=== PATIENT | male | born 1945 | race African-American/Black ===

== ENCOUNTER 2018-01-12 10:30 | Observation (INO) ==
--- NOTE | 2018-01-12 10:59 | ED ---
HPI General Chief Complaint: Extremity Injury, Lower Stated Complaint: Leg Pain Time Seen by Provider: 01/12/18 10:41 Source: patient Mode of arrival: ambulatory Limitations: no limitations History of Present Illness HPI Narrative: Patient is a 72-year-old male who presents to the ER for evaluation of possible DVT. Patient reports that he has been traveling over the past week and has noticed pain to his left lower extremity yesterday. Reports concerns for a DVT as he did have a DVT 11 years ago. He is unsure why he had a DVT at that time - he currently is not on any anticoagulation. Denies chest pain/sob. No other complaints. Related Data Home Medications Medication Instructions Recorded Confirmed telmisartan [Micardis] 80 mg PO DAILY 01/12/18 01/12/18 Allergies Allergy/AdvReac Type Severity Reaction Status Date / Time No Known Allergies Allergy Unverified 01/12/18 10:46 Review of Systems Except as stated in HPI: all other systems reviewed are negative [facility] Medical History Medical History External hemorrhoid (Acute) History of blood clots (Acute) Hypertension (Acute) Prostate CA (Acute) Radiation exposure (Acute) DVT (deep venous thrombosis) (Acute) Social History Social History Substance History: No History of Abuse Second Hand Smoke Exposure: No Smoking Status: Never smoker How Often Do You Have a Drink Containing Alcohol: 2 to 4 times a month Recent Travel in [facility] within the Last 8 Weeks: Yes Recent Out of Country Travel within the Last 8 Weeks: No Immunization History Tetanus Immunization: <5 Years Hx Influenza Vaccine This Season: Unable to Assess Exam Narrative Exam Narrative: GENERAL: NAD SKIN: Focused skin assessment warm/dry. HEAD: Atraumatic. Normocephalic. EYES: Pupils equal and round. No scleral icterus. No injection or drainage. ENT: No nasal bleeding or discharge. Mucous membranes pink and moist. NECK: Trachea midline. No JVD. CARDIOVASCULAR: Regular rate and rhythm. No murmur appreciated. RESPIRATORY: No accessory muscle use. Clear to auscultation. Breath sounds equal bilaterally. GASTROINTESTINAL: Abdomen soft, non-tender, nondistended. Hepatic and splenic margins not palpable. MUSCULOSKELETAL: No obvious deformities. No clubbing. No cyanosis. No edema. Positive homans signs to lle, normal pulses NEUROLOGICAL: Awake and alert. No obvious cranial nerve deficits. Motor grossly within normal limits. Normal speech. PSYCHIATRIC: Appropriate mood and affect; insight and judgment normal. Course Initial Documented Vital Signs Temperature 97.5 F L 01/12/18 10:33 Pulse Rate 101 H 01/12/18 10:33 Respiratory Rate 20 01/12/18 10:33 Blood Pressure 152/87 H 01/12/18 10:33 Pulse Oximetry 96 01/12/18 10:33 Last Documented Vital Signs Temperature 97.5 F L 01/12/18 10:33 Pulse Rate 89 01/12/18 13:52 Respiratory Rate 18 01/12/18 13:52 Blood Pressure 114/72 01/12/18 13:52 Pulse Oximetry 97 01/12/18 13:52 Medical Decision Making MDM Narrative Medical decision making narrative: During the course of the patients emergency department visit, the patients history, examination, and differential diagnosis were reviewed with the patient. The patient was placed on a registered nurse cardiac with oximetry and frequent blood pressure monitoring. The patient had an IV access obtained and blood work sent for analysis. The patients laboratory studies were reviewed and remarkable for cr 2.24, inr 1.2, pt 12.2 Radiology studies were reviewed and remarkable for : doppler US: Concerning for a significant extensive clot identified throughout the left lower extremity from the level of the iliac vein to the level of the calf with small amount of flow within the peroneal vein. I did initially order a CTA to rule out pulmonary embolism, patient's creatinine is 2.24, this will be canceled. I am starting patient on anticoagulation - heparin drip with bolus - will hold of on CTA as well as VQ scan as patient is not short of breath and is getting heparin bolus as well as drip. Patient will require admission to the hospital given his significant thrombus as well as severe pain to his left lower extremity -he may require a thrombectomy due to this extensive clot Patient is agreeable to admission to the hospital. Please note that patient did receive a dose of Xarelto as initial plan was to ultimately discharge him to home on this - Given the severity of his leg pain - patient will require intervention vs discharge Case reviewed with FP resident who accepts pt to service under Dr. Cooper Differential Diagnosis Differential Diagnosis: dvt vs muscle strain vs superficial thrombophlebetitis Medical Records Medical records reviewed: Yes I reviewed the patient's medical records. Lab Data Result diagrams: 01/12/18 11:30 01/12/18 10:53 Lab Results 01/12/18 01/12/18 01/12/18 Range/Units 10:53 10:53 11:30 WBC 9.8 (4.0-11.0) th/mm3 RBC 4.90 (4.50-5.90) mil/mm3 Hgb 14.4 (13.0-17.0) gm/dL Hct 42.2 (39.0-51.0) % MCV 86.2 (80.0-100.0) fL MCH 29.5 (27.0-34.0) pg MCHC 34.2 (32.0-36.0) % RDW 14.0 (11.6-17.2) % Plt Count 152 (150-450) th/mm3 MPV 6.9 L (7.0-11.0) fL Neut % (Auto) 76.3 H (16.0-70.0) % Lymph % (Auto) 12.7 (9.0-44.0) % Caroline % (Auto) 10.8 H (0.0-8.0) % Eos % (Auto) 0.0 (0.0-4.0) % Baso % (Auto) 0.2 (0.0-2.0) % Neut # (Auto) 7.5 (1.8-7.7) th/mm3 Lymph # (Auto) 1.2 (1.0-4.8) th/mm3 Caroline # (Auto) 1.1 H (0.0-0.9) th/mm3 Eos # (Auto) 0.0 (0.0-0.4) th/mm3 Baso # (Auto) 0.0 (0.0-0.2) th/mm3 WBC Differential . Differential Comment Auto diff final PT 12.2 H (9.8-11.6) sec INR 1.2 Ratio APTT 29.4 (24.3-30.1) sec Sodium 137 (136-145) meq/L Potassium 4.0 (3.5-5.1) meq/L Chloride 103 (98-107) meq/L Carbon Dioxide 23.7 (21.0-32.0) meq/L Anion Gap 10 (5-15) meq/L BUN 39 H (7-18) mg/dL Creatinine 2.24 H (0.60-1.30) mg/dL Estimated GFR 35 L (>89) mL/min Random Glucose 113 H (74-106) mg/dL Calcium 10.1 (8.5-10.1) mg/dL Total Bilirubin 0.7 (0.2-1.0) mg/dL AST 23 (15-37) U/L ALT 21 (12-78) U/L Alkaline Phosphatase 55 (45-117) U/L Total Protein 8.3 H (6.4-8.2) g/dL Albumin 3.7 (3.4-5.0) g/dL Imaging Data Radiologist's impression: Venous Doppler Study 01/12/18 10:52 CONCLUSION: 1. Significantly abnormal exam with extensive clot identified throughout the left lower sternum in the and nonocclusive thrombus identified within the right popliteal vein and peroneal vein. 2. Small Rodgers cyst identified within the right popliteal fossa. Discharge Plan Discharge Disposition Patient Disposition: 30 Still Patient Discharge Details Diagnosis: DVT (deep venous thrombosis) Physicians Team ED Provider: Moira Mchugh Primary Care Provider: UNKNOWN, Rxs /Orders / Referrals /Forms Prescriptions: No Action telmisartan [Micardis] 80 mg Tablet 80 mg PO DAILY RF: 0 Status ED Status: With Doctor
[2018-01-12 11:01] VITALS: RESP 18
[2018-01-12 11:17] LABS: Activated Partial Thrombo Time 29.4 sec (24.3-30.1); INR 1.2 Ratio; Prothrombin Time 12.2 sec (9.8-11.6)
[2018-01-12 11:24] LABS: Alanine Aminotransferase 21 U/L (12-78); Albumin 3.7 g/dL (3.4-5.0); Alkaline Phosphatase 55 U/L (45-117); Anion Gap 10 meq/L (5-15); Aspartate Aminotransferase 23 U/L (15-37); Blood Urea Nitrogen 39 mg/dL (7-18); Calcium 10.1 mg/dL (8.5-10.1); Carbon Dioxide 23.7 meq/L (21.0-32.0); Chloride 103 meq/L (98-107); Glomerular Filtration Rate 35 mL/min (>89); Glucose,Random 113 mg/dL (74-106); Sodium 137 meq/L (136-145); Total Protein 8.3 g/dL (6.4-8.2)
--- NOTE | 2018-01-12 11:34 | US ---
EXAM DATE: 01/12/2018 11:26 AM EDT AGE/SEX: 72 years / Male INDICATIONS: Bilateral leg swelling. CLINICAL DATA: This is the patient's initial encounter. Patient reports that signs and symptoms have been present for 1 week and indicates a pain score of 2/10. MEDICAL/SURGICAL HISTORY: Hypertension. Hemorrhoid. Blood clots. Prostate cancer. . Radiation therapy. COMPARISON: No prior exams available for comparison. TECHNIQUE: Venous ultrasound of both lower extremities was performed from the inguinal ligament to t he proximal calf. Real-time, color Doppler and spectral tracing, compression and augmentation techni ques were used. FINDINGS: Right Leg: There is nonocclusive thrombus identified within the popliteal vein and peroneal vein. Th e more proximal deep venous system is patent with normal respiratory variation. There is blood flow i dentified within the posterior tibial vein. There is a small well-circumscribed uncomplicated appeari ng Rodgers cyst identified within the right popliteal fossa measuring 4.3 x 1.2 x 2.4 cm. Left Leg: The left lower extremity is significant for extensive occlusive thrombus involving the ent cira left lower extremity from the level of the iliac vein to the level of the calf with a small amoun t of flow identified within the peroneal vein. Other: None. CONCLUSION: 1. Significantly abnormal exam with extensive clot identified throughout the left lower sternum in t he and nonocclusive thrombus identified within the right popliteal vein and peroneal vein. 2. Small Rodgers cyst identified within the right popliteal fossa. Electronically signed by: Salena Lane MD 01/12/2018 11:32 AM EDT
[2018-01-12 11:57] LABS: Baso % (Auto) 0.2 % (0.0-2.0); Hematocrit 42.2 % (39.0-51.0); Hemoglobin 14.4 gm/dL (13.0-17.0); Lymph # (Auto) 1.2 th/mm3 (1.0-4.8); Lymph % (Auto) 12.7 % (9.0-44.0); Mean Corpuscular HGB Conc 34.2 % (32.0-36.0); Mean Corpuscular Hemoglobin 29.5 pg (27.0-34.0); Mean Corpuscular Volume 86.2 fL (80.0-100.0); Mean Platelet Volume 6.9 fL (7.0-11.0); Mono # (Auto) 1.1 th/mm3 (0.0-0.9); Mono % (Auto) 10.8 % (0.0-8.0); Neut # (Auto) 7.5 th/mm3 (1.8-7.7); Neut % (Auto) 76.3 % (16.0-70.0); Platelet Count 152 th/mm3 (150-450); White Blood Count 9.8 th/mm3 (4.0-11.0)
[2018-01-12] MEDS ORDERED: Rivaroxaban 15 MG Tablet PO ONE (12:10)
[2018-01-12] MEDS ORDERED: Heparin 10,000 UNITS/10 ML Vial (for IV use) IV.PUSH STA (13:04)
[2018-01-12] MEDS ORDERED: Heparin Drip 25,000 UNIT/250 ML BAG IV.CONT PRN (13:04)
[2018-01-12] MEDS ORDERED: Morphine Inj 4 MG/ML Vial IV.PUSH ONE (13:43)
--- NOTE | 2018-01-12 14:01 | P.HPFP ---
History of Present Illness Primary Care Physician: UNKNOWN <Navdeep Cooper - 01/12/18 20:44> UNKNOWN <Brie Khoury - 01/12/18 14:01> History of Present Illness: 72-year-old male presenting with left leg swelling and pain progressing over the last 2 days. He was found to have DVT on ultrasound. He does have a history of DVT 18 years ago and was treated in the hospital but was not treated with anticoagulation long-term. He does endorse several recent flights, but none more than a few hours in duration. His most recent international flight was approximately 1 year ago. He states that he noticed the left leg began to swell and become painful starting yesterday without any inciting events. He denies any shortness of breath, he denies any palpitations, he denies any chest pain, he denies any fevers or chills, he denies any dizziness or lightheadedness , he denies any other neurologic changes. He does not recall if there is an inciting event for his previous DVT. <Navdeep Cooper - 01/12/18 19:53> Mr Sexton is a 72yom with PMH of LLE DVT 18 years ago. He was DC'd with heparin but did not give himself injections. 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 Yesterday he reports he developed left leg pain from below the knee up to the groin and inner thigh area he describes as "excruciating" worse with standing. He notes that that evening his left leg began to swell he denies erythema or skin changes. He does report venous distention of the leg. He did attempt IcyHot with no alleviation of the pain. He denies any pain in the right leg. Yesterday he did have dizziness, nausea, vomiting. But he was able to keep food and fluids down. He denies chest pain or shortness of breath. 18 years ago L leg DVT. Started on Coumadin for 5 days. He was d/c with heparin but did not give himself injections Flies internationally a good bit, most recent on (flight and driving) Sat- L leg pain from below knee up in the groin. Excruciating. Worse with standing. He notes some swelling that evening. Denies erythema, venous distention present. Icy hot did not alleviate pain PMH: H/o Diploplia Prostate cx 11 years ago, s/p radiation Lesion on prostate MRI 1 month ago, bone scan negative. HTN Meds: Micardis (losartan/hctz) Sx: Radiation to prostate FMH: Father-prostate cancer Mother- diabetic, HTN, breast cancer Social: Former smoker, social, none in 40 years No EtOH No recreational drugs. <Brie Khoury 01/12/18 16:16> - Diagnosis (1) DVT (deep venous thrombosis) (2) IVELISSE (acute kidney injury) (3) Nausea & vomiting (4) Hypertension (5) Urinary urgency (6) Nutrition, metabolism, and development symptoms <Navdeep Cooper - 01/12/18 20:44> (1) DVT (deep venous thrombosis) (2) IVELISSE (acute kidney injury) (3) Nausea & vomiting (4) Hypertension (5) Urinary urgency (6) Nutrition, metabolism, and development symptoms <Brie Khoury 01/12/18 16:16> Review of Systems Constitutional: [Denies] chills, [Denies] fever(s), [Denies] headache(s), [ Denies]weakness Eyes: Reports double vision, able from previous history Ears, Nose, Mouth, and Throat:[Denies] ear pain, reports nasal congestion reports sore throat Cardiovascular: Reports lightheadedness, [Denies] chest pain, [Denies] palpitations, [Denies] fainting. [Denies] rapid heart rate Respiratory: [Denies] cough, [Denies] shortness of breath Gastrointestinal: [Denies] abdominal pain,[Denies] cramping, [Denies] black, tarry stools, [Denies] bright, red blood in stools, reports nausea, reports vomiting, [Denies] changes in bowel habits Genitourinary: [Denies] blood in urine, [Denies] painful urination, reports urinary urgency, reports urinary frequency, [Denies] urinary incontinence Musculoskeletal: [Denies] back pain, [Denies] body aches, [Denies] muscle weakness Neurologic: [Denies] numbness, reports tingling of L fingertips. Reports dizziness <Brie Khoury 01/12/18 16:16> [facility] - History History Provided By: Patient <Brie Khoury 01/12/18 14:01> - Medical History Medical History: Medical History (Last Updated 01/12/18 @ 10:58 by Moira Mchugh) External hemorrhoid History of blood clots Hypertension Prostate CA Radiation exposure DVT (deep venous thrombosis) <Navdeep Cooper 01/12/18 19:53> Medical History (Last Updated 01/12/18 @ 10:58 by Moira Mchugh) External hemorrhoid History of blood clots Hypertension Prostate CA Radiation exposure DVT (deep venous thrombosis) <Brie Khoury 01/12/18 14:01> - Tobacco History Second Hand Smoke Exposure: No <Brie Khoury 01/12/18 14:01> Tobacco Use In Past 30 Days: No <Brie Khoury 01/12/18 14:01> Smoking Status: Never smoker <Brie Khoury 01/12/18 14:01> - Alcohol History How Often Do You Have a Drink Containing Alcohol: 2 to 4 times a month <Brie Khoury 01/12/18 14:01> - Substance Use History Substance History: No History of Abuse <Brie Khoury 01/12/18 14:01> - Travel History Recent Travel in the [facility] Within the Last 8 Weeks: Yes <Brie Khoury 14:01> Recent Travel Out of the Country Within the Last 8 Weeks: No <Brie Khoury 01/12/18 14:01> - Immunization History Tetanus Immunization: <5 Years <Brie Khoury 01/12/18 14:01> Hx Influenza Vaccine This Season: Unable to Assess <Brie Khoury 01/12/18 14:01> Medications and Allergies Allergies Allergy/AdvReac Type Severity Reaction Status Date / Time No Known Allergies Allergy Unverified 01/12/18 10:46 <Navdeep Cooper 01/12/18 20:44> Home Medications Medication Instructions Recorded Confirmed Type telmisartan [Micardis] 80 mg PO DAILY 01/12/18 01/12/18 History <Navdeep Cooper 01/12/18 20:44> Active Medications: Active Medications Acetaminophen (Tylenol) 650 mg PO Q6HR PRN PRN Reason: PAIN SCALE 1 TO 2 Al Hydroxide/Mg Hydroxide (Milk Of [place]ch[place] Liq) 30 ml PO Q12H PRN PRN Reason: Mild Constipation Sodium Chloride (Ns Inj) 1,000 mls @ 120 mls/hr IV.CONT .Q8H20M [facility] Last Admin: 01/12/18 16:06 Dose: 120 mls/hr Losartan Potassium (Cozaar) 100 mg PO DAILY [facility] Naloxone HCl (Narcan Inj) 0.4 mg IV.PUSH UNSCH PRN PRN Reason: SEE LABEL COMMENTS Ondansetron HCl (Zofran Inj) 4 mg IV.PUSH Q6H PRN PRN Reason: NAUSEA OR VOMITING Oxycodone/Acetaminophen (Percocet 10/325 Mg) 1 tab PO Q6H PRN PRN Reason: PAIN SCALE 6 TO 10 Last Admin: 01/12/18 17:34 Dose: 1 tab Oxycodone/Acetaminophen (Percocet 5/325 Mg) 1 tab PO Q6H PRN PRN Reason: PAIN SCALE 3 TO 5 Rivaroxaban (Xarelto) 15 mg PO BID [facility] Senna/Docusate Sodium (Luz Elena-Colace) 1 tab PO BID [facility] Sennosides (Senokot) 17.2 mg PO Q12H PRN PRN Reason: Moderate Constipation Sodium Chloride (Ns Flush) 2 ml IV.FLUSH PRN PRN PRN Reason: FLUSH AFTER USING IV ACCESS Temazepam (Restoril) 15 mg PO HS PRN PRN Reason: INSOMNIA <Navdeep Cooper - 01/12/18 20:44> Active Medications Heparin Sodium/Dextrose (Heparin/D5w 25,000 U/250 Ml) 25,000 unit in 250 mls @ 0 mls/hr IV.CONT TITRATE PRN; Protocol PRN Reason: Per Protocol Last Admin: 01/12/18 13:32 Dose: 1,500 units/hr, 15 mls/hr Sodium Chloride (Ns Flush) 2 ml IV.FLUSH PRN PRN PRN Reason: FLUSH AFTER USING IV ACCESS <Brie Khoury - 01/12/18 14:01> Exam Vital signs: Vital Signs 01/12/18 10:33 01/12/18 10:35 01/12/18 10:48 Temperature 97.5 F L Pulse Rate 101 H 99 H 97 H Respiratory Rate 20 18 18 Blood Pressure 152/87 H 124/87 124/87 Pulse Oximetry 96 96 95 01/12/18 13:52 01/12/18 17:20 01/12/18 17:44 Temperature 97.6 F Pulse Rate 89 82 79 Respiratory Rate 18 18 18 Blood Pressure 114/72 111/79 125/87 Pulse Oximetry 97 96 95 01/12/18 18:04 01/12/18 19:34 Temperature 98.2 F Pulse Rate 88 78 Respiratory Rate 16 Blood Pressure 94/60 L Pulse Oximetry 98 Intake & Output 01/12/18 01/12/18 01/13/18 06:59 18:59 06:59 Output Total 200 / 200 Balance -200 / -200 Weight 83.915 kg Output: Urine 200 / 200 <Navdeep Cooper - 01/12/18 20:44> Vital Signs 01/12/18 10:33 01/12/18 10:35 01/12/18 10:48 Temperature 97.5 F L Pulse Rate 101 H 99 H 97 H Respiratory Rate 20 18 18 Blood Pressure 152/87 H 124/87 124/87 Pulse Oximetry 96 96 95 01/12/18 13:52 Temperature Pulse Rate 89 Respiratory Rate 18 Blood Pressure 114/72 Pulse Oximetry 97 Intake & Output 01/11/18 01/12/18 01/12/18 18:59 06:59 18:59 Weight 83.915 kg <Brie Khoury - 01/12/18 14:01> Narrative: General: Healthy and well appearing male, lying in bed in no obvious distress CV: Tachycardic with regular rhythm, no murmurs appreciated Pulmonary: Clear to auscultation bilaterally, no accessory muscle use GI: Soft, nondistended, nontender MSK: Left lower extremity diffusely swollen and appears mildly erythematous compared to the right lower extremity. Mildly tender to palpation on posterior gastrocnemius and posterior thigh. Dorsalis pedis pulses intact. Sensation intact. No open lesions or rash appreciated <Navdeep Cooper - 01/12/18 20:44> GENERAL: Well appearing male, lying in bed in NAD EYES: No scleral icterus. No injection or drainage. NECK: Supple, trachea midline. No JVD or lymphadenopathy. CARDIOVASCULAR: Mildly tachycardic and normal rhythm without murmurs, gallops, or rubs. RESPIRATORY: Breath sounds equal bilaterally. No accessory muscle use. No wheezing heard GASTROINTESTINAL: Diffusely mildly tender to palpation abdomen soft, nondistended. MUSCULOSKELETAL: Left lower extremity tender palpation mid posterior gastrocnemius. Minimal tenderness to palpation of left groin area. No erythematous or skin changes. Pedal pulses intact bilaterally. Distal Sensation intact bilaterally. <Brie Khoury - 01/12/18 16:16> Results - Labs Result diagrams: 01/12/18 11:30 01/12/18 10:53 <Navdeep Cooper - 01/12/18 20:44> Abnormal lab results 01/12/18 01/12/18 01/12/18 Range/Units 10:53 10:53 11:30 MPV 6.9 L (7.0-11.0) fL Neut % (Auto) 76.3 H (16.0-70.0) % [place] % (Auto) 10.8 H (0.0-8.0) % [place] # (Auto) 1.1 H (0.0-0.9) th/mm3 PT 12.2 H (9.8-11.6) sec BUN 39 H (7-18) mg/dL Creatinine 2.24 H (0.60-1.30) mg/dL Estimated GFR 35 L (>89) mL/min Random Glucose 113 H (74-106) mg/dL Total Protein 8.3 H (6.4-8.2) g/dL Urine Protein (Neg-Trace) mg/dL Urine Bacteria (None) /hpf 01/12/18 Range/Units 18:00 MPV (7.0-11.0) fL Neut % (Auto) (16.0-70.0) % [place] % (Auto) (0.0-8.0) % [place] # (Auto) (0.0-0.9) th/mm3 PT (9.8-11.6) sec BUN (7-18) mg/dL Creatinine (0.60-1.30) mg/dL Estimated GFR (>89) mL/min Random Glucose (74-106) mg/dL Total Protein (6.4-8.2) g/dL Urine Protein 30 H (Neg-Trace) mg/dL Urine Bacteria Few H (None) /hpf Short CBC 01/12/18 Range/Units 11:30 WBC 9.8 (4.0-11.0) th/mm3 Hgb 14.4 (13.0-17.0) gm/dL Hct 42.2 (39.0-51.0) % Plt Count 152 (150-450) th/mm3 BMP 01/12/18 10:53 Sodium 137 Potassium 4.0 Chloride 103 Carbon Dioxide 23.7 BUN 39 H Creatinine 2.24 H Calcium 10.1 Liver Function 01/12/18 Range/Units 10:53 Total Bilirubin 0.7 (0.2-1.0) mg/dL AST 23 (15-37) U/L ALT 21 (12-78) U/L Alkaline Phosphatase 55 (45-117) U/L Albumin 3.7 (3.4-5.0) g/dL Urine 01/12/18 Range/Units 18:00 Urine Color Yellow (Yellw/Straw) Urine Clarity Clear (Clear) Urine pH 5.5 (5.0-8.5) Ur Specific [place] 1.022 (1.002-1.035) Urine Protein 30 H (Neg-Trace) mg/dL Urine Glucose (UA) Negative (Negative) mg/dL <Navdeep Cooper - 01/12/18 20:44> Abnormal lab results 01/12/18 01/12/18 01/12/18 Range/Units 10:53 10:53 11:30 MPV 6.9 L (7.0-11.0) fL Neut % (Auto) 76.3 H (16.0-70.0) % [place] % (Auto) 10.8 H (0.0-8.0) % [place] # (Auto) 1.1 H (0.0-0.9) th/mm3 PT 12.2 H (9.8-11.6) sec BUN 39 H (7-18) mg/dL Creatinine 2.24 H (0.60-1.30) mg/dL Estimated GFR 35 L (>89) mL/min Random Glucose 113 H (74-106) mg/dL Total Protein 8.3 H (6.4-8.2) g/dL Short CBC 01/12/18 Range/Units 11:30 WBC 9.8 (4.0-11.0) th/mm3 Hgb 14.4 (13.0-17.0) gm/dL Hct 42.2 (39.0-51.0) % Plt Count 152 (150-450) th/mm3 BMP 01/12/18 10:53 Sodium 137 Potassium 4.0 Chloride 103 Carbon Dioxide 23.7 BUN 39 H Creatinine 2.24 H Calcium 10.1 Liver Function 01/12/18 Range/Units 10:53 Total Bilirubin 0.7 (0.2-1.0) mg/dL AST 23 (15-37) U/L ALT 21 (12-78) U/L Alkaline Phosphatase 55 (45-117) U/L Albumin 3.7 (3.4-5.0) g/dL <Brie Khoury - 01/12/18 14:01> - Imaging Impressions Venous Doppler Study 01/12/18 10:52 CONCLUSION: 1. Significantly abnormal exam with extensive clot identified throughout the left lower sternum in the and nonocclusive thrombus identified within the right popliteal vein and peroneal vein. 2. Small Rodgers cyst identified within the right popliteal fossa. <Navdeep Cooper - 01/12/18 20:44> Impressions Venous Doppler Study 01/12/18 10:52 CONCLUSION: 1. Significantly abnormal exam with extensive clot identified throughout the left lower sternum in the and nonocclusive thrombus identified within the right popliteal vein and peroneal vein. 2. Small Rodgers cyst identified within the right popliteal fossa. <Brie Khoury 01/12/18 14:01> Caprini VTE Risk Assessment Caprini VTE Risk Assessment: Moderate/High Risk (score >= 2) <Brie Khoury 01/12/18 16:16> Caprini Risk Assessment Model: Point Value = 1 Point Value = 2 Point Value = 3 Point Value = 5 Age 41-60 Minor surgery BMI > 25 kg/m2 Swollen legs Varicose veins or History of unexplained or recurrent spontaneous Oral contraceptives or hormone replacement Sepsis (< 1 month) Serious lung disease, including pneumonia (< 1 month) Abnormal pulmonary function Acute myocardial infarction Congestive heart failure (< 1 month) History of inflammatory bowel disease Medical patient at bed rest Age 61-74 Arthroscopic surgery Major open surgery (> 45 min) Laparoscopic surgery (> 45 min) Malignancy Confined to bed (> 72 hours) Immobilizing plaster cast Central venous access Age >= 75 History of VTE Family history of VTE Factor V Leiden Prothrombin [id number] Lupus anticoagulant Anticardiolipin antibodies Elevated serum homocysteine Heparin-induced thrombocytopenia Other congenital or acquired thrombophilia Stroke (< 1 month) Elective arthroplasty Hip, pelvis, or leg fracture Acute spinal cord injury (< 1 month) <Navdeep Cooper - 01/12/18 20:44> Point Value = 1 Point Value = 2 Point Value = 3 Point Value = 5 Age 41-60 Minor surgery BMI > 25 kg/m2 Swollen legs Varicose veins or History of unexplained or recurrent spontaneous Oral contraceptives or hormone replacement Sepsis (< 1 month) Serious lung disease, including pneumonia (< 1 month) Abnormal pulmonary function Acute myocardial infarction Congestive heart failure (< 1 month) History of inflammatory bowel disease Medical patient at bed rest Age 61-74 Arthroscopic surgery Major open surgery (> 45 min) Laparoscopic surgery (> 45 min) Malignancy Confined to bed (> 72 hours) Immobilizing plaster cast Central venous access Age >= 75 History of VTE Family history of VTE Factor V Leiden Prothrombin [id number] Lupus anticoagulant Anticardiolipin antibodies Elevated serum homocysteine Heparin-induced thrombocytopenia Other congenital or acquired thrombophilia Stroke (< 1 month) Elective arthroplasty Hip, pelvis, or leg fracture Acute spinal cord injury (< 1 month) <Brie Khoury - 01/12/18 14:01> Prophylaxis Regimen: Total Risk Factor Score Risk Level Prophylaxis Regimen 0-1 Low Early ambulation 2 Moderate Order ONE of the following: *Sequential Compression Device (SCD) *Heparin 5000 units SQ BID 3-4 Higher Order ONE of the following medications: *Heparin 5000 units SQ TID *Enoxaparin/Lovenox 40 mg SQ daily (WT < 150 kg, CrCl > 30 mL/min) *Enoxaparin/Lovenox 30 mg SQ daily (WT < 150 kg, CrCl > 10-29 mL/min) *Enoxaparin/Lovenox 30 mg SQ BID (WT < 150 kg, CrCl > 30 mL/min) AND/OR *Sequential Compression Device (SCD) 5 or more Highest Order ONE of the following medications: *Heparin 5000 units SQ TID (Preferred with Epidurals) *Enoxaparin/Lovenox 40 mg SQ daily (WT < 150 kg, CrCl > 30 mL/min) *Enoxaparin/Lovenox 30 mg SQ daily (WT < 150 kg, CrCl > 10-29 mL/min) *Enoxaparin/Lovenox 30 mg SQ BID (WT < 150 kg, CrCl > 30 mL/min) AND *Sequential Compression Device (SCD) <Navdeep Cooper - 01/12/18 20:44> Total Risk Factor Score Risk Level Prophylaxis Regimen 0-1 Low Early ambulation 2 Moderate Order ONE of the following: *Sequential Compression Device (SCD) *Heparin 5000 units SQ BID 3-4 Higher Order ONE of the following medications: *Heparin 5000 units SQ TID *Enoxaparin/Lovenox 40 mg SQ daily (WT < 150 kg, CrCl > 30 mL/min) *Enoxaparin/Lovenox 30 mg SQ daily (WT < 150 kg, CrCl > 10-29 mL/min) *Enoxaparin/Lovenox 30 mg SQ BID (WT < 150 kg, CrCl > 30 mL/min) AND/OR *Sequential Compression Device (SCD) 5 or more Highest Order ONE of the following medications: *Heparin 5000 units SQ TID (Preferred with Epidurals) *Enoxaparin/Lovenox 40 mg SQ daily (WT < 150 kg, CrCl > 30 mL/min) *Enoxaparin/Lovenox 30 mg SQ daily (WT < 150 kg, CrCl > 10-29 mL/min) *Enoxaparin/Lovenox 30 mg SQ BID (WT < 150 kg, CrCl > 30 mL/min) AND *Sequential Compression Device (SCD) <Brie Khoury - 01/12/18 14:01> Assessment and Plan - Assessment (1) DVT (deep venous thrombosis) Code(s): I82.409 - Acute embolism and thrombosis of unspecified deep veins of unspecified lower extremity Status: Acute Plan: Diffuse DVT of the left lower extremity from the iliac vein all the way down through the calf -Patient was started on a heparin drip in the emergency department and also started on Xarelto Continue Xarelto twice daily Initiate hypercoagulable workup given this is the patient's second DVT Consult placed to vascular surgery for evaluation of possible catheter guided thrombo-lysis versus other intervention (2) IVELISSE (acute kidney injury) Code(s): N17.9 - Acute kidney failure, unspecified Status: Acute Plan: Unknown baseline kidney function but no history of abnormal kidney function per patient Given 1 L normal saline bolus and then run maintenance fluids of 120 mL/hour Avoid nephrotoxic agents Follow-up BMP in the morning (3) Nausea & vomiting Code(s): R11.2 - Nausea with vomiting, unspecified Status: Acute Plan: Zofran as needed for nausea and vomiting (4) Hypertension Code(s): I10 - Essential (primary) hypertension Status: Acute Plan: Stablecontinue home medications (5) Urinary urgency Code(s): R39.15 - Urgency of urination Status: Acute (6) Nutrition, metabolism, and development symptoms Code(s): R63.8 - Other symptoms and signs concerning food and fluid intake Status: Acute <Navdeep Cooper - 01/12/18 20:44> (1) DVT (deep venous thrombosis) Code(s): I82.409 - Acute embolism and thrombosis of unspecified deep veins of unspecified lower extremity Status: Acute Plan: -Patient started on Xarelto in the ED. -Continue Xarelto 50 mg twice daily. -Routine consult to vascular surgery for evaluation with possible thrombo-ectomy -Patient on surveillance system monitor for tachycardia. -CTA unable to be done due to patient's poor kidney function (2) IVELISSE (acute kidney injury) Code(s): N17.9 - Acute kidney failure, unspecified Status: Acute Plan: -Bolus fluids 1 L normal saline -Maintenance fluid 120/h normal saline -Avoid nephrotoxic agents -Follow-up BMP in a.m. -Unknown baseline creatinine (3) Nausea & vomiting Code(s): R11.2 - Nausea with vomiting, unspecified Status: Acute Plan: -Zofran 4 mg every 6 as needed -IV hydration as above (4) Hypertension Code(s): I10 - Essential (primary) hypertension Status: Acute Plan: Continue home medication (5) Urinary urgency Code(s): R39.15 - Urgency of urination Status: Acute Plan: -Likely a result of previous radiation treatment for prostate cancer -UA ordered (6) Nutrition, metabolism, and development symptoms Code(s): R63.8 - Other symptoms and signs concerning food and fluid intake Status: Acute Plan: Fluids: normal saline 120 mL per hour Electrolytes: Replete as necessary DVT prophylaxis: Patient on Xarelto <Peng,Brie E - 01/12/18 16:16> - Assessment and Plan Discussed Condition With: Dr Fraire <Brie Khoury - 01/12/18 16:16> <Brie Khoury - Last Filed: 01/12/18 16:16> (1) DVT (deep venous thrombosis) Qualifiers: DVT location: lower extremity Affected thrombotic vein of extremity: unspecified vein of extremity Chronicity: acute <Navdeep Cooper Filed: 01/12/18 20:44> (1) DVT (deep venous thrombosis) Qualifiers: DVT location: lower extremity Affected thrombotic vein of extremity: unspecified vein of extremity Chronicity: acute <Brie Khoury Filed: 01/12/18 16:16> (1) DVT (deep venous thrombosis) Qualifiers: DVT location: lower extremity Affected thrombotic vein of extremity: unspecified vein of extremity Chronicity: acute <Navdeep Cooper Filed: 01/12/18 20:44> (1) DVT (deep venous thrombosis) Qualifiers: DVT location: lower extremity Affected thrombotic vein of extremity: unspecified vein of extremity Chronicity: acute
[2018-01-12] MEDS ORDERED: Temazepam 15 MG Capsule PO PRN (15:26)
[2018-01-12] MEDS ORDERED: Sod Chloride 0.9% Inj 1,000 ML IV.SIG ONE (15:32)
[2018-01-12] MEDS: Sod Chloride 0.9% Inj 1,000 ML IV.CONT SCH (16:06)
[2018-01-12] MEDS ORDERED: Naloxone Inj 0.4 MG/ML Vial IV.PUSH PRN (16:52)
[2018-01-12] MEDS ORDERED: Acetaminophen 325 MG Tablet PO PRN (16:52)
[2018-01-12] MEDS: oxyCODONE/Acetaminophen 10/325 Tablet PO PRN (17:34)
[2018-01-12 18:24] LABS: Bilirubin,Urine Negative (Negative); Clarity,Urine Clear (Clear); Color,Urine Yellow (Yellw/Straw); Glucose,Urine (UA) Negative (Negative); Leukocyte Esterase,Urine Negative (Negative); Nitrite,Urine Negative (Negative); PH,Urine 5.5 (5.0-8.5); Urobilinogen,Urine 0.2 mg/dL (Less than 2)
[2018-01-12 18:34] LABS: RBC,Urine 0-3 /hpf (0-3); Specific Gravity,Urine 1.022 (1.002-1.035)
[2018-01-12 18:35] LABS: Bacteria,Urine Few /hpf
[2018-01-12 20:16] LABS: INR 1.5 Ratio; Prothrombin Time 15.1 sec (9.8-11.6)
[2018-01-12 20:18] LABS: Activated Partial Thrombo Time 102.5 sec (24.3-30.1)
[2018-01-13] MEDS: Senna/Docusate Sodium 8.6/50 MG Tablet PO SCH ×3 (00:14→21:39)
[2018-01-13] MEDS: Rivaroxaban 15 MG Tablet PO SCH ×3 (00:47→21:39)
[2018-01-13] MEDS: Sod Chloride 0.9% Inj 1,000 ML IV.CONT SCH ×3 (01:24→13:50)
[2018-01-13 08:52] LABS: Baso % (Auto) 0.5 % (0.0-2.0); Eos # (Auto) 0.2 th/mm3 (0.0-0.4); Eos % (Auto) 2.8 % (0.0-4.0); Hematocrit 38.5 % (39.0-51.0); Hemoglobin 13.1 gm/dL (13.0-17.0); Mean Corpuscular Hemoglobin 29.5 pg (27.0-34.0); Mean Corpuscular Volume 86.7 fL (80.0-100.0); Mean Platelet Volume 6.6 fL (7.0-11.0); Mono # (Auto) 0.8 th/mm3 (0.0-0.9); Mono % (Auto) 11.9 % (0.0-8.0); Neut # (Auto) 4.7 th/mm3 (1.8-7.7); Neut % (Auto) 69.8 % (16.0-70.0); Platelet Count 134 th/mm3 (150-450); Red Blood Count 4.43 mil/mm3 (4.50-5.90); Red Cell Distribution Width 14.1 % (11.6-17.2); White Blood Count 6.8 th/mm3 (4.0-11.0)
[2018-01-13 09:22] LABS: Calcium 8.3 mg/dL (8.5-10.1); Carbon Dioxide 24.5 meq/L (21.0-32.0); Potassium 4.1 meq/L (3.5-5.1)
[2018-01-13] MEDS: oxyCODONE/Acetaminophen 10/325 Tablet PO PRN (09:26)
--- NOTE | 2018-01-13 11:16 | P.PNFP ---
Subjective Interval history: Pt seen and examined this morning. No acute events overnight. Reports come pain in his left leg, but otherwise doing well. Denies any new complaints. Reports no fever/chills, chest pain, SOB, abdominal pain. <Codey Christine - 01/13/18 11:15> Results - Labs Result diagrams: 01/13/18 08:32 01/13/18 08:32 <Navdeep Cooper - 01/13/18 16:10> Abnormal lab results 01/12/18 01/12/18 01/13/18 Range/Units 18:00 19:20 02:43 RBC (4.50-5.90) mil/mm3 Hct (39.0-51.0) % Plt Count (150-450) th/mm3 MPV (7.0-11.0) fL Arthur % (Auto) (0.0-8.0) % PT 15.1 H (9.8-11.6) sec APTT 102.5 H* D 38.0 H D (24.3-30.1) sec BUN (7-18) mg/dL Creatinine (0.60-1.30) mg/dL Estimated GFR (>89) mL/min Calcium (8.5-10.1) mg/dL Urine Protein 30 H (Neg-Trace) mg/dL Urine Bacteria Few H (None) /hpf 01/13/18 01/13/18 01/13/18 Range/Units 08:32 08:32 08:32 RBC 4.43 L (4.50-5.90) mil/mm3 Hct 38.5 L (39.0-51.0) % Plt Count 134 L (150-450) th/mm3 MPV 6.6 L (7.0-11.0) fL Arthur % (Auto) 11.9 H (0.0-8.0) % PT (9.8-11.6) sec APTT 42.3 H (24.3-30.1) sec BUN 38 H (7-18) mg/dL Creatinine 1.79 H (0.60-1.30) mg/dL Estimated GFR 45 L (>89) mL/min Calcium 8.3 L D (8.5-10.1) mg/dL Urine Protein (Neg-Trace) mg/dL Urine Bacteria (None) /hpf Short CBC 01/13/18 Range/Units 08:32 WBC 6.8 (4.0-11.0) th/mm3 Hgb 13.1 (13.0-17.0) gm/dL Hct 38.5 L (39.0-51.0) % Plt Count 134 L (150-450) th/mm3 BMP 01/13/18 08:32 Sodium 141 Potassium 4.1 Chloride 107 Carbon Dioxide 24.5 BUN 38 H Creatinine 1.79 H Calcium 8.3 L D Urine 01/12/18 Range/Units 18:00 Urine Color Yellow (Yellw/Straw) Urine Clarity Clear (Clear) Urine pH 5.5 (5.0-8.5) Ur Specific Cochrane 1.022 (1.002-1.035) Urine Protein 30 H (Neg-Trace) mg/dL Urine Glucose (UA) Negative (Negative) mg/dL <Navdeep Cooper - 01/13/18 16:10> Abnormal lab results 01/12/18 01/12/18 01/12/18 Range/Units 10:53 10:53 11:30 RBC (4.50-5.90) mil/mm3 Hct (39.0-51.0) % Plt Count (150-450) th/mm3 MPV 6.9 L (7.0-11.0) fL Neut % (Auto) 76.3 H (16.0-70.0) % Arthur % (Auto) 10.8 H (0.0-8.0) % Arthur # (Auto) 1.1 H (0.0-0.9) th/mm3 PT 12.2 H (9.8-11.6) sec APTT (24.3-30.1) sec BUN 39 H (7-18) mg/dL Creatinine 2.24 H (0.60-1.30) mg/dL Estimated GFR 35 L (>89) mL/min Random Glucose 113 H (74-106) mg/dL Calcium (8.5-10.1) mg/dL Total Protein 8.3 H (6.4-8.2) g/dL Urine Protein (Neg-Trace) mg/dL Urine Bacteria (None) /hpf 01/12/18 01/12/18 01/13/18 Range/Units 18:00 19:20 02:43 RBC (4.50-5.90) mil/mm3 Hct (39.0-51.0) % Plt Count (150-450) th/mm3 MPV (7.0-11.0) fL Neut % (Auto) (16.0-70.0) % Arthur % (Auto) (0.0-8.0) % Arthur # (Auto) (0.0-0.9) th/mm3 PT 15.1 H (9.8-11.6) sec APTT 102.5 H* D 38.0 H D (24.3-30.1) sec BUN (7-18) mg/dL Creatinine (0.60-1.30) mg/dL Estimated GFR (>89) mL/min Random Glucose (74-106) mg/dL Calcium (8.5-10.1) mg/dL Total Protein (6.4-8.2) g/dL Urine Protein 30 H (Neg-Trace) mg/dL Urine Bacteria Few H (None) /hpf 01/13/18 01/13/18 01/13/18 Range/Units 08:32 08:32 08:32 RBC 4.43 L (4.50-5.90) mil/mm3 Hct 38.5 L (39.0-51.0) % Plt Count 134 L (150-450) th/mm3 MPV 6.6 L (7.0-11.0) fL Neut % (Auto) (16.0-70.0) % Arthur % (Auto) 11.9 H (0.0-8.0) % Arthur # (Auto) (0.0-0.9) th/mm3 PT (9.8-11.6) sec APTT 42.3 H (24.3-30.1) sec BUN 38 H (7-18) mg/dL Creatinine 1.79 H (0.60-1.30) mg/dL Estimated GFR 45 L (>89) mL/min Random Glucose (74-106) mg/dL Calcium 8.3 L D (8.5-10.1) mg/dL Total Protein (6.4-8.2) g/dL Urine Protein (Neg-Trace) mg/dL Urine Bacteria (None) /hpf Short CBC 01/12/18 01/13/18 Range/Units 11:30 08:32 WBC 9.8 6.8 (4.0-11.0) th/mm3 Hgb 14.4 13.1 (13.0-17.0) gm/dL Hct 42.2 38.5 L (39.0-51.0) % Plt Count 152 134 L (150-450) th/mm3 BMP 01/12/18 01/13/18 10:53 08:32 Sodium 137 141 Potassium 4.0 4.1 Chloride 103 107 Carbon Dioxide 23.7 24.5 BUN 39 H 38 H Creatinine 2.24 H 1.79 H Calcium 10.1 8.3 L D Liver Function 01/12/18 Range/Units 10:53 Total Bilirubin 0.7 (0.2-1.0) mg/dL AST 23 (15-37) U/L ALT 21 (12-78) U/L Alkaline Phosphatase 55 (45-117) U/L Albumin 3.7 (3.4-5.0) g/dL Urine 01/12/18 Range/Units 18:00 Urine Color Yellow (Yellw/Straw) Urine Clarity Clear (Clear) Urine pH 5.5 (5.0-8.5) Ur Specific Cochrane 1.022 (1.002-1.035) Urine Protein 30 H (Neg-Trace) mg/dL Urine Glucose (UA) Negative (Negative) mg/dL <Codey Christine - 01/13/18 11:15> - Imaging Impressions Venous Doppler Study 01/12/18 10:52 CONCLUSION: 1. Significantly abnormal exam with extensive clot identified throughout the left lower sternum in the and nonocclusive thrombus identified within the right popliteal vein and peroneal vein. 2. Small Rodgers cyst identified within the right popliteal fossa. <Codey Christine - 01/13/18 11:15> Physical Exam Vital signs: Vital Signs 01/12/18 17:20 01/12/18 17:44 01/12/18 18:04 Temperature 97.6 F Pulse Rate 82 79 88 Respiratory Rate 18 18 Blood Pressure 111/79 125/87 Pulse Oximetry 96 95 01/12/18 19:34 01/12/18 21:33 01/12/18 23:14 Temperature 98.2 F 97.9 F 98.3 F Pulse Rate 78 87 80 Respiratory Rate 16 17 16 Blood Pressure 94/60 L 109/74 103/65 Pulse Oximetry 98 97 93 L 01/13/18 03:40 01/13/18 07:40 01/13/18 09:15 Temperature 98.4 F 97.7 F Pulse Rate 77 83 82 Respiratory Rate 16 18 Blood Pressure 114/75 136/93 H Pulse Oximetry 96 97 01/13/18 11:14 01/13/18 15:28 Temperature 98.0 F 97.9 F Pulse Rate 74 72 Respiratory Rate 16 16 Blood Pressure 103/70 115/79 Pulse Oximetry 94 L 96 Intake & Output 01/12/18 01/13/18 01/13/18 18:59 06:59 18:59 Intake Total 1999 1000 / 1000 Output Total 200 / 200 Balance -200 / -200 1999 1000 / 1000 Weight 83.915 kg Intake: IV 1999 1000 / 1000 NS Inj 1,000 ML @ 120 mls/hr IV 999 / 1000 1000 / 1000 .CONT .Q8H20M [facility] Rx#:[id number] NS Inj 1,000 ML @ Wide Open IV. 1000 / 1000 SIG BOLUS ONE Rx#:[id number] Output: Urine 200 / 200 Other: Date of Last Bowel Movement 01/12/18 01/11/18 <Navdeep Cooper - 01/13/18 16:10> Vital Signs 01/12/18 13:52 01/12/18 17:20 01/12/18 17:44 Temperature 97.6 F Pulse Rate 89 82 79 Respiratory Rate 18 18 18 Blood Pressure 114/72 111/79 125/87 Pulse Oximetry 97 96 95 01/12/18 18:04 01/12/18 19:34 01/12/18 21:33 Temperature 98.2 F 97.9 F Pulse Rate 88 78 87 Respiratory Rate 16 17 Blood Pressure 94/60 L 109/74 Pulse Oximetry 98 97 01/12/18 23:14 01/13/18 03:40 01/13/18 07:40 Temperature 98.3 F 98.4 F 97.7 F Pulse Rate 80 77 83 Respiratory Rate 16 16 18 Blood Pressure 103/65 114/75 136/93 H Pulse Oximetry 93 L 96 97 Intake & Output 01/12/18 01/13/18 01/13/18 18:59 06:59 18:59 Intake Total 1999 550 / 550 Output Total 200 / 200 Balance -200 / -200 1999 550 / 550 Weight 83.915 kg Intake: IV 1999 550 / 550 NS Inj 1,000 ML @ 120 mls/hr IV 999 / 999 550 / 550 .CONT .Q8H20M [facility] Rx#:[id number] NS Inj 1,000 ML @ Wide Open IV. 1000 / 1000 SIG BOLUS ONE Rx#:[id number] Output: Urine 200 / 200 Other: Date of Last Bowel Movement 01/12/18 <Codey Christine - 01/13/18 11:15> Narrative: GENERAL: SKIN: Warm and dry. CARDIOVASCULAR: Regular rate and rhythm. RESPIRATORY: No accessory muscle use. Clear to auscultation. Breath sounds equal bilaterally. GASTROINTESTINAL: Abdomen soft, non-tender, nondistended. Hepatic and splenic margins not palpable. MUSCULOSKELETAL: LLE calf mildly swollen. NEUROLOGICAL: Awake and alert. Motor grossly within normal limits. F Normal speech. PSYCHIATRIC: Appropriate mood and affect; insight and judgment normal. <Codey Christine - 01/13/18 11:15> Assessment and Plan - Assessment (1) DVT (deep venous thrombosis) Code(s): I82.409 - Acute embolism and thrombosis of unspecified deep veins of unspecified lower extremity Status: Acute (2) IVELISSE (acute kidney injury) Code(s): N17.9 - Acute kidney failure, unspecified Status: Acute (3) Nausea & vomiting Code(s): R11.2 - Nausea with vomiting, unspecified Status: Acute (4) Hypertension Code(s): I10 - Essential (primary) hypertension Status: Acute (5) Urinary urgency Code(s): R39.15 - Urgency of urination Status: Acute (6) Nutrition, metabolism, and development symptoms Code(s): R63.8 - Other symptoms and signs concerning food and fluid intake Status: Acute <Navdeep Cooper - 01/13/18 16:10> (1) DVT (deep venous thrombosis) Code(s): I82.409 - Acute embolism and thrombosis of unspecified deep veins of unspecified lower extremity Status: Acute Plan: Diffuse DVT of the left lower extremity from the iliac vein all the way down through the calf -Patient was started on a heparin drip in the emergency department and also started on Xarelto Continue Xarelto twice daily Initiate hypercoagulable workup given this is the patient's second DVT Consult placed to vascular surgery for evaluation of possible catheter guided thrombo-lysis versus other intervention (2) IVELISSE (acute kidney injury) Code(s): N17.9 - Acute kidney failure, unspecified Status: Acute Plan: Unknown baseline kidney function but no history of abnormal kidney function per patient Given 1 L normal saline bolus and then run maintenance fluids of 120 mL/hour Avoid nephrotoxic agents Creatinine improved to 1.79 this AM Continue to monitor (3) Nausea & vomiting Code(s): R11.2 - Nausea with vomiting, unspecified Status: Acute Plan: Zofran as needed for nausea and vomiting (4) Hypertension Code(s): I10 - Essential (primary) hypertension Status: Acute Plan: Stablecontinue home medications (5) Urinary urgency Code(s): R39.15 - Urgency of urination Status: Acute Plan: -Likely a result of previous radiation treatment for prostate cancer -UA no sign of infection -Continue to monitor (6) Nutrition, metabolism, and development symptoms Code(s): R63.8 - Other symptoms and signs concerning food and fluid intake Status: Acute Plan: Fluids: normal saline 120 mL per hour Electrolytes: Replete as necessary DVT prophylaxis: Patient on Xarelto <Codey Christine - 01/13/18 11:10> - Attending Attestation Patient examined independently and case discussed with resident physicians I have read the above note and agree with the assessment/plan as discussed with me I was involved in all medical decision making for this patient Navdeep Cooper MD <Navdeep Cooper - 01/13/18 16:10> <Codey Christine - Last Filed: 01/13/18 11:10> (1) DVT (deep venous thrombosis) Qualifiers: DVT location: lower extremity Affected thrombotic vein of extremity: unspecified vein of extremity Chronicity: acute <Navdeep Cooper - Last Filed: 01/13/18 16:10> (1) DVT (deep venous thrombosis) Qualifiers: DVT location: lower extremity Affected thrombotic vein of extremity: unspecified vein of extremity Chronicity: acute <Codey Christine - Last Filed: 01/13/18 11:10> (1) DVT (deep venous thrombosis) Qualifiers: DVT location: lower extremity Affected thrombotic vein of extremity: unspecified vein of extremity Chronicity: acute <Navdeep Cooper - Last Filed: 01/13/18 16:10> (1) DVT (deep venous thrombosis) Qualifiers: DVT location: lower extremity Affected thrombotic vein of extremity: unspecified vein of extremity Chronicity: acute
[2018-01-14] MEDS: Sod Chloride 0.9% Inj 1,000 ML IV.CONT SCH ×2 (01:20→01:21)
--- NOTE | 2018-01-14 07:38 | MB ---
cc: Yareli Taylor MD DATE: 01/13/2018 CONSULTING PHYSICIAN: Dr. Taylor, Vascular Surgery REASON FOR CONSULTATION: DVT of the left leg and the recurrence of the same. HISTORY OF PRESENT ILLNESS: This pleasant 72-year-old gentleman in very good physical shape, came to a wedding to [place] after a flight from [place], [place] and noted to have swelling in his left leg. He was worked up, found to have extensive DVT of the left leg and, hence, the consultation. PAST MEDICAL HISTORY: Hypertension, prostate carcinoma about 11 years ago, radiation for the same and deep venous thrombosis about a dozen or so years ago in the right leg. SOCIAL HISTORY: The patient does not smoke or drink. PHYSICAL EXAMINATION: GENERAL: Reveals a pleasant 72-year-old gentleman. HEENT: Normocephalic. No trauma to the head. Pupils equal, reactive. Extraocular muscles intact. NECK: Supple. Bilateral carotid pulses. No bruits. CHEST: Clear bilateral breath sounds. HEART: Regular rhythm. ABDOMEN: Soft. Active bowel sounds. No rebound, no guarding, no masses. EXTREMITIES: The patient has palpable femoral, popliteal, dorsalis pedis and posterior tibial pulses bilaterally. Good brachial, radial and ulnar pulses. Feet are warm and well perfused. Capillary refill is normal. The patient is neurologically fully intact. It is noted that the patient's circumference of the left leg is slightly greater than that of the right side and the patient's tenderness which was present in the calf and thigh has since decreased as he is on anticoagulation. Patient has extensive deep venous thrombosis of the left leg, ranging from iliac vein all the way down, while there is some distal thrombosis in the right leg, from popliteal artery down the peroneal. ASSESSMENT AND PLAN: At this point, surgically, there is no indication for any intervention. The patient does not have phlegmasia cerulea dolens or phlegmasia alba dolens. The blood flow to the legs is uninterrupted and normal and deep venous thrombosis is treated appropriately. The patient will have to be on intravenous anticoagulation, then switched to oral anticoagulants and then he can followup with his physician at home. As far as wider picture is concerned, deep venous thrombosis in this age group always has to be evaluated against the chance of this being prompted by some sort of hypercoagulable state, including occult carcinoma or recurrence of a known tumor. In addition, this patient now at 2 episodes of DVT and, therefore, it is probably crawford to work the patient up for common congenital coagulation disorders like Leiden Factor V, antithrombin III, protein C or protein S deficits, fossa lipid factors, lupus and such. Clearly, the majority of these patients would have symptoms early in their youth and this would be unusual situation. However, with partial expression, some of these procoagulant disorders may become occult and manifest themselves in a sporadic way. In the end, probably likely there will be no underlying problem identified. Either way, there is no surgical indication at this time to perform any procedure. Thank you very much for your referral. MD ANDREY Lucas/ANGELY , 05:54 PM , 06:06 PM
[2018-01-14] MEDS: Rivaroxaban 15 MG Tablet PO SCH (08:58)
--- NOTE | 2018-01-14 11:47 | P.PNFP ---
Subjective Interval history: Mr. Austin was seen on rounds today. He reports that his leg pain is much improved With only some residual pain in the left groin area. He believes the swelling has gone down. He denies chest pain, shortness of breath, nausea, vomiting, abdominal pain, diarrhea. He has many questions which were answered to his satisfaction. <Brie Khoury - 01/14/18 11:47> Results - Labs Result diagrams: 01/13/18 08:32 01/13/18 08:32 <Navdeep Cooper - 01/14/18 16:56> Physical Exam Vital signs: Vital Signs 01/13/18 20:00 01/14/18 00:00 01/14/18 01:32 Temperature 98.6 F 98.4 F Pulse Rate 83 81 Respiratory Rate 16 18 18 Blood Pressure 129/88 119/79 Pulse Oximetry 96 97 01/14/18 03:56 01/14/18 07:51 Temperature 98.3 F 99.1 F Pulse Rate 87 Respiratory Rate 17 18 Blood Pressure 116/82 140/97 H Pulse Oximetry 96 95 Intake & Output 01/13/18 01/14/18 01/14/18 18:59 06:59 18:59 Intake Total 1000 / 1000 1000 / 1000 Balance 1000 / 1000 1000 / 1000 Intake: IV 1000 / 1000 1000 / 1000 NS Inj 1,000 ML @ 120 mls/hr IV 1000 / 1000 1000 / 1000 .CONT .Q8H20M [facility] Rx#:[id number] Other: # Voids 3 Date of Last Bowel Movement 01/11/18 01/13/18 <Navdeep Cooper - 01/14/18 16:56> Vital Signs 01/13/18 15:28 01/13/18 20:00 01/14/18 00:00 Temperature 97.9 F 98.6 F 98.4 F Pulse Rate 72 83 81 Respiratory Rate 16 16 18 Blood Pressure 115/79 129/88 119/79 Pulse Oximetry 96 96 97 01/14/18 01:32 01/14/18 03:56 01/14/18 07:51 Temperature 98.3 F 99.1 F Pulse Rate 87 Respiratory Rate 18 17 18 Blood Pressure 116/82 140/97 H Pulse Oximetry 96 95 Intake & Output 01/13/18 01/14/18 01/14/18 18:59 06:59 18:59 Intake Total 1000 / 1000 1000 / 1000 Balance 1000 / 1000 1000 / 1000 Intake: IV 1000 / 1000 1000 / 1000 NS Inj 1,000 ML @ 120 mls/hr IV 1000 / 1000 1000 / 1000 .CONT .Q8H20M [facility] Rx#:[id number] Other: # Voids 3 Date of Last Bowel Movement 01/11/18 01/13/18 <Jong Khouryaaron Lanza - 01/14/18 11:47> Narrative: GENERAL: Well-appearing male sitting up in bed. CARDIOVASCULAR: Regular rate and rhythm. RESPIRATORY: No accessory muscle use. Clear to auscultation. Breath sounds equal bilaterally. GASTROINTESTINAL: Abdomen soft, non-tender, nondistended. MUSCULOSKELETAL: LLE mildly swollen, mildly tender to palpation in left coronary NEUROLOGICAL: Awake and alert. Motor grossly within normal limits. Normal speech. PSYCHIATRIC: Appropriate mood and affect; insight and judgment normal. <Brie Khoury - 01/14/18 11:47> Assessment and Plan - Assessment (1) DVT (deep venous thrombosis) Code(s): I82.409 - Acute embolism and thrombosis of unspecified deep veins of unspecified lower extremity Status: Acute (2) IVELISSE (acute kidney injury) Code(s): N17.9 - Acute kidney failure, unspecified Status: Acute (3) Nausea & vomiting Code(s): R11.2 - Nausea with vomiting, unspecified Status: Acute (4) Hypertension Code(s): I10 - Essential (primary) hypertension Status: Acute (5) Urinary urgency Code(s): R39.15 - Urgency of urination Status: Acute (6) Nutrition, metabolism, and development symptoms Code(s): R63.8 - Other symptoms and signs concerning food and fluid intake Status: Acute <Navdeep Cooper - 01/14/18 16:56> (1) DVT (deep venous thrombosis) Code(s): I82.409 - Acute embolism and thrombosis of unspecified deep veins of unspecified lower extremity Status: Acute Plan: Diffuse DVT of the left lower extremity from the iliac vein all the way down through the calf -Patient was started on a heparin drip in the emergency department and also started on Xarelto Continue Xarelto twice daily hypercoagulable workup ordered given this is the patient's second DVT Consult placed to vascular surgery, no recommendations for surgical intervention at this time Patient will follow up with primary care physician regarding malignancy workup (2) IVELISSE (acute kidney injury) Code(s): N17.9 - Acute kidney failure, unspecified Status: Acute Plan: Unknown baseline kidney function but no history of abnormal kidney function per patient Status post 1 L normal saline bolus maintenance fluids of 120 mL/hour Avoid nephrotoxic agents Creatinine trending down Continue to monitor (3) Nausea & vomiting Code(s): R11.2 - Nausea with vomiting, unspecified Status: Acute Plan: Zofran as needed for nausea and vomiting Resolved while in hospital (4) Hypertension Code(s): I10 - Essential (primary) hypertension Status: Acute Plan: Stablecontinue home medications (5) Urinary urgency Code(s): R39.15 - Urgency of urination Status: Acute Plan: -Likely a result of previous radiation treatment for prostate cancer -UA no sign of infection -Continue to monitor (6) Nutrition, metabolism, and development symptoms Code(s): R63.8 - Other symptoms and signs concerning food and fluid intake Status: Acute Plan: Fluids: normal saline 120 mL per hour Electrolytes: Replete as necessary DVT prophylaxis: Patient on Xarelto <Brie Khoury - 01/14/18 11:41> - Assessment and Plan Discussed Condition With: Dr Cooper <Brie Khoury - 01/14/18 11:47> Discharge Planning: Signed patient discharge packet as well as length of stay letter for patient's insurance purposes. DC home today with 20 days of Xarelto. Patient instructed to follow-up with PCP for continuation of Xarelto Rx as well as possible malignancy workup. <Brie Khoury - 01/14/18 11:47> - Attending Attestation Patient examined during medical rounds with the resident this morning I have read the above note and agree with the assessment/plan as discussed with me I was involved in all medical decision making for this patient Navdeep Cooper MD <Navdeep Cooper - 01/14/18 16:56> <Brie Khoury Filed: 01/14/18 11:41> (1) DVT (deep venous thrombosis) Qualifiers: DVT location: lower extremity Affected thrombotic vein of extremity: unspecified vein of extremity Chronicity: acute <KennethNavdeep Filed: 01/14/18 16:56> (1) DVT (deep venous thrombosis) Qualifiers: DVT location: lower extremity Affected thrombotic vein of extremity: unspecified vein of extremity Chronicity: acute <Brie Khoury Filed: 01/14/18 11:41> (1) DVT (deep venous thrombosis) Qualifiers: DVT location: lower extremity Affected thrombotic vein of extremity: unspecified vein of extremity Chronicity: acute <KennethNavdeep Filed: 01/14/18 16:56> (1) DVT (deep venous thrombosis) Qualifiers: DVT location: lower extremity Affected thrombotic vein of extremity: unspecified vein of extremity Chronicity: acute
--- NOTE | 2018-01-14 14:14 | P.DS ---
Date of admission: 01/12/18 13:54 Primary care physician: UNKNOWN Brief History from admission: 72-year-old male presenting with left leg swelling and pain progressing over the last 2 days. He was found to have DVT on ultrasound. He does have a history of DVT 18 years ago and was treated in the hospital but was not treated with anticoagulation long-term. He does endorse several recent flights, but none more than a few hours in duration. His most recent international flight was approximately 1 year ago. He states that he noticed the left leg began to swell and become painful starting yesterday without any inciting events. He denies any shortness of breath, he denies any palpitations, he denies any chest pain, he denies any fevers or chills, he denies any dizziness or lightheadedness , he denies any other neurologic changes. He does not recall if there is an inciting event for his previous DVT. DS: Diagnosis - Discharge Diagnosis (1) DVT (deep venous thrombosis) Status: Acute (2) IVELISSE (acute kidney injury) Status: Acute (3) Nausea & vomiting Status: Acute (4) Hypertension Status: Acute (5) Urinary urgency Status: Acute (6) Nutrition, metabolism, and development symptoms Status: Acute DS: Medications - Discharge Medications Prescriptions: rivaroxaban [Xarelto] 15 mg PO BID 20 Days #40 tab DS: Summary Hospital Course: Mr. Sexton was admitted on 01/12 for left leg swelling and pain. He was found to have an extensive DVT of the left leg on ultrasound as well as nonocclusive DVT on right side. CTA was not done due to patient's acute kidney injury. The patient was started on Xarelto. As this was the patient's second DVT (with the last being 18 years ago) with no known cause, hypercoagulable panel was ordered. Results still pending. Vascular surgery was consulted with no recommendations for surgical intervention at this time. Patient's pain and swelling in the leg improved during hospital course. Creatinine improved as well. He was discharged on 01/14 with a Rx for Xarelto. Patient was told to follow-up with PCP regarding continuation of Xarelto Rx as well as possible malignancy workup. - Time Spent with Patient Total time spent providing and/or coordinating discharge services: Less than 30 minutes - Quality: VTE Deep Vein Thrombosis/Pulmonary Embolism Present on Admission: Yes Exam Vital signs: Vital Signs 01/13/18 15:28 01/13/18 20:00 01/14/18 00:00 Temperature 97.9 F 98.6 F 98.4 F Pulse Rate 72 83 81 Respiratory Rate 16 16 18 Blood Pressure 115/79 129/88 119/79 Pulse Oximetry 96 96 97 01/14/18 01:32 01/14/18 03:56 01/14/18 07:51 Temperature 98.3 F 99.1 F Pulse Rate 87 Respiratory Rate 18 17 18 Blood Pressure 116/82 140/97 H Pulse Oximetry 96 95 Intake & Output 01/13/18 01/14/18 01/14/18 18:59 06:59 18:59 Intake Total 1000 / 1000 1000 / 1000 Balance 1000 / 1000 1000 / 1000 Intake: IV 1000 / 1000 1000 / 1000 NS Inj 1,000 ML @ 120 mls/hr IV 1000 / 1000 1000 / 1000 .CONT .[id number] Rx#:[id number] Other: # Voids 3 Date of Last Bowel Movement 01/11/18 01/13/18 Results Procedures completed during hospitalization: None - Impressions ITS Impressions Venous Doppler Study 01/12/18 10:52 CONCLUSION: 1. Significantly abnormal exam with extensive clot identified throughout the left lower sternum in the and nonocclusive thrombus identified within the right popliteal vein and peroneal vein. 2. Small Rodgers cyst identified within the right popliteal fossa. Discharge Plan - Discharge Disposition Patient Disposition: Discharge Home - Discharge Condition Condition: Stable - Discharge Order Discharge Orders: Discharge Order (Routine); Ordered 01/14/18 Ordered By: Brie Khoury - Physicians Team Primary Care Provider: UNKNOWN, Attending Provider: Navdeep Cooper
[2018-01-14 20:48] VITALS: BP 140/97; PULSE 87; TEMP 99.1; O2SAT 95
[2018-01-15 13:50] LABS: Dil Russell Viper Venom Conf ( NEGATIVE (NEGATIVE); Dil Russell Viper Venom Time M ND (CORRECTED); Lupus Anticoagulant PTT Screen Greater Than 200 seconds (< OR = 40)
[2018-01-16 03:51] LABS: Activated Protein C Resistance 1.5 ratio (> OR = 2.1)
[2018-01-16 18:55] LABS: Factor V Leiden Mutation Heterozygous (Negative); Protein C Antigen 94 % (70-150)
[2018-01-23 15:52] LABS: Homocysteine (Cardiovascular) 19.2 umol/L (<11.4)
== END 2018-01-14 12:59 | disposition home or self-care (01) ==
LOC: NEPC 10:30 → NEPGCP 10:30 → INTOOBSV 13:54 → NEDA 13:54 → NEPGCP 17:34
PROVIDERS: ADMIT Family Medicine; ATTEND Family Medicine
DX: Z85.46 Personal history of malignant neoplasm of prostate; I82.431 Acute embolism and thrombosis of right popliteal vein; I10 Essential (primary) hypertension; R39.15 Urgency of urination; M71.21 Synovial cyst of popliteal space [Baker], right knee; N17.9 Acute kidney failure, unspecified; I82.422 Acute embolism and thrombosis of left iliac vein; R11.2 Nausea with vomiting, unspecified